=== PATIENT | male | born 1950 | race Caucasian/White ===

== ENCOUNTER 2019-02-12 18:15 | Inpatient (IN) | payer MEDICARE, BC ==
[~2019-02-12] VITALS: Ht 185.4 cm; Wt 98.9 kg
[2019-02-12 18:21] VITALS: BP 212/116
[2019-02-12 18:44] LABS: ABSOLUTE BASOPHILS 0.1 thou/uL (0.0-0.2); ABSOLUTE EOSINOPHILS 0.2 thou/uL (0.0-0.7); ABSOLUTE LYMPHOCYTES 1.5 thou/uL (0.8-5.3); ABSOLUTE MONOCYTES 0.7 thou/uL (0.0-1.2); ABSOLUTE NEUTROPHILS 6.2 thou/uL (1.6-8.1); BASOPHILS 1.2 %; EOSINOPHILS 2.4 %; HEMATOCRIT 42.9 % (42.0-52.0); LYMPHOCYTES 17.6 %; MCH 33.2 pg (26.0-34.0); MCHC 34.9 g/dL (28.0-37.0); MCV 94.9 fL (80.0-100.0); MPV 8.5 fl. (7.2-11.1); NUCLEATED RBCS 0 /100WBC; PLATELET COUNT* 172 thou/uL (150-400); POLYS 70.8 %; RBC 4.52 mil/uL (4.50-6.00); RDW-CV 12.9 % (10.5-14.5); WBC 8.8 thou/uL (4.0-11.0)
[2019-02-12 18:56] LABS: ANION GAP 11 mmol/L (7-16); APTT 25.2 Seconds (25.0-31.3); BUN 16 mg/dL (7-18); CALCIUM 9.1 mg/dL (8.5-10.1); CHLORIDE 102 mmol/L (98-107); CO2 27 mmol/L (21-32); GLUCOSE 108 mg/dL (70-99); POTASSIUM 3.4 mmol/L (3.5-5.1); PROTIME 10.4 Seconds (9.20-11.50); SODIUM 140 mmol/L (136-145)
[2019-02-12 19:05] LABS: ALBUMIN 4.5 g/dL (3.4-5.0); ALKALINE PHOSPHATASE 93 U/L (46-116); SGOT 27 U/L (15-37); SGPT 16 U/L (30-65); TOTAL PROTEIN 7.4 g/dL (6.4-8.2); TROPONIN-I LEVEL <0.06 ng/mL (<0.06)
[2019-02-12] MEDS ORDERED: AMANTADINE100 M1 PO (19:06)
[2019-02-12] MEDS ORDERED: PAXIL10 MG PO (19:06)
[2019-02-12] MEDS ORDERED: SINEMET 10-1001 EAC1 PO (19:07)
[2019-02-12] MEDS ORDERED: SINEMET 25-1001 EAC1 PO ×2 (19:07→19:26)
[2019-02-12] MEDS ORDERED: TRAZODONE HCL50 MG PO (19:08)
[2019-02-12] MEDS ORDERED: MIRAPEX 0.250.25 M1 PO (19:27)
[2019-02-12 19:58] LABS: URINE BILIRUBIN NEGATIVE (Negative); URINE BLOOD NEGATIVE (Negative); URINE CLARITY CLEAR; URINE COLOR YELLOW; URINE GLUCOSE-RANDOM NEGATIVE (Negative); URINE KETONES 2+ (Negative); URINE LEUKOCYTES-REFLEX NEGATIVE (Negative); URINE NITRITE-REFLEX NEGATIVE (Negative); URINE PROTEIN NEGATIVE (Negative); URINE UROBILINOGEN 0.2 E.U./dl (0.2-1.0)
[2019-02-12 20:14] LABS: AMP/METHAMP Negative (Negative); BARBITURATES Negative (Negative); BENZODIAZEPINES Negative (Negative); COCAINE Negative (Negative); METHADONE Negative (Negative); OPIATES Negative (Negative); PCP Negative (Negative); THC Negative (Negative)
[2019-02-12 20:31] VITALS: BP 162/107; BP 186/91
[2019-02-13] VITALS: BP 161/92
--- NOTE | 2019-02-13 07:57 | NUR ---
PATIENT ARRIVED ON FLOOR ABOUT 2039. PATIENT WAS VERY RESTLESS AND IMPULSIVE CLIMBING OUT OF BED FIRST PART OF THE SHIFT. A SITTER WAS PLACED IN THERE PART OF THE NIGHT AND THE DID SIT WITH THE PATIENT FOR A COUPLE HOURS TILL HE CALMED DOWN. IV REMAINS SALINE LOCKED. PATIENT HAD NO COMPLAINTS OF PAIN. BED AND CHAIR ALARMS IN PLACE FOR PATIENT SAFETY. WILL CONTINUE TO MONITOR.
[2019-02-13 08:00] VITALS: BP 152/91
[2019-02-13 12:40] VITALS: BP 146/92
--- NOTE | 2019-02-13 14:14 | NUR ---
Pt is A&O. Resides at home with his . Independent. No DME. No hx of HH or SNF. Goal is home at dc, Pt unsure if he will need anything at dc. Following.
[2019-02-13 16:00] VITALS: BP 151/90
[2019-02-13 20:00] VITALS: BP 148/88
--- NOTE | 2019-02-13 20:13 | NUR ---
I ASSUMED CARE OF THE PATIENT AT 0700. HE IS ALERT AND ORIENTED X4 AND HAS A SITTER. BED IS IN THE LOW LOCKED POSITION AND CALL LIGHT IS IN REACH. HOURLY ROUNDING IS COMPLETED AND PATIENT NEEDS ARE MET. PAIN IS DENIED. PATIENT HAD A SITTER AND COMPANY MOST OF THE DAY. BLOOD PRESSURE SEEMS TO BE IMPROVING. WILL CONTINUE TO MONITOR. IS WILLING TO BRING IN HOME MEDS IF WE STRUGGLE TO ACCESS THEM.
[2019-02-13 23:47] VITALS: BP 150/91
[2019-02-14 04:00] VITALS: BP 160/97
--- NOTE | 2019-02-14 05:02 | NUR ---
PATIENT ALERT/ORIENTED X4 AND IMPULSIVE. PT DOES NOT REMEMBER TO CALL FOR ASSISTANCE TO BATHROOM BUT HAS A VERY STEADY GAIT TO BATHROOM. PT WITH SALINE LOCK AND IS ON ROOM AIR. PT IS SR ON JUNIOR BUSINESS ANALYST. PT DENIES NEEDS AT THIS TIME. FREQUENTLY USED ITEMS AND CALL LIGHT WITHIN REACH. SIDERAILS UPX3 AND BED ALARM ON. FREQUENT OBSERVATIONS MADE. PT HAD 1:1 SITTER FOR APPROX 30 MIN AFTER FRIEND LEFT AND BEFORE HS MEDICATIONS WERE GIVEN. WILL CONTINUE TO MONITOR.
[2019-02-14 06:03] LABS: HEMATOCRIT 45.7 % (42.0-52.0); HEMOGLOBIN 15.3 gm/dL (14.0-18.0); MCH 32.7 pg (26.0-34.0); MCHC 33.5 g/dL (28.0-37.0); MCV 97.4 fL (80.0-100.0); MPV 7.5 fl. (7.2-11.1); RBC 4.69 mil/uL (4.50-6.00); RDW-CV 13.1 % (10.5-14.5); WBC 6.8 thou/uL (4.0-11.0)
[2019-02-14 06:06] LABS: CALCIUM 9.1 mg/dL (8.5-10.1); CREATININE 1.2 mg/dL (0.6-1.3); MAGNESIUM 2.2 mg/dL (1.8-2.4)
[2019-02-14 08:00] VITALS: BP 138/95
[2019-02-14] MEDS ORDERED: LISINOPRIL20 MG PO (08:35)
--- NOTE | 2019-02-14 09:31 | EKG ---
[place] [address] ELECTROCARDIOGRAM REPORT Name: LILLY BONE Room: [address] ADM IN M.R.#: [id number] Admission: 02/12/19 Attend Phys: Roberto Colby MD Discharge: Date of : 48 Report #: [id number] THIS REPORT FOR: //name// [facility] ED Test Date: 2019-02-12 Test Time: 19:03:06 Pat Name: LILLY BONE Department: Room: [facility] Gender: M Pricer: ELENA : 1950 Requested By: Danielle Hernández Order Number: [id number] MD: Wei Aparicio Measurements Intervals [place] Rate: 77 P: 47 DC: 135 QRS: -5 QRSD: 118 T: -12 QT: 431 QTc: 488 Interpretive Statements Sinus rhythm Nonspecific intraventricular conduction delay Lateral infarct, age indeterminate No previous ECG available for comparison Electronically Signed On 02-14-2019 9:31:31 CDT by Wei Aparicio [email or web address] <ELECTRONICALLY SIGNED> By: Wei Aparicio MD, [facility] 02/14/19 0931 02 02 Wei Aparicio MD, [facility] /EPI
[2019-02-14 11:12] VITALS: BP 138/95
== END 2019-02-14 11:45 | disposition home or self-care (01) | DRG 305 ==
LOC: M.ERS 18:15 → M.TBA-ER 19:32 → M.2W 19:32
PROVIDERS: Family Medicine; Internal Medicine; Nurse Practitioner Family; ADMIT Internal Medicine
DX: I16.1 Hypertensive emergency (principal); G93.40 Encephalopathy, unspecified; G25.81 Restless legs syndrome; F32.9 Major depressive disorder, single episode, unspecified; E87.6 Hypokalemia; I10 Essential (primary) hypertension; G20 Parkinson's disease; Z79.899 Other long term (current) drug therapy; T46.5X5A Adverse effect of other antihypertensive drugs, initial encounter; Y92.89 Other specified places as the place of occurrence of the external cause

== ENCOUNTER 2019-02-21 18:43 | Inpatient (IN) | payer MEDICARE, BC ==
[~2019-02-21] VITALS: Ht 185.4 cm; Wt 104.8 kg
[~2019-02-21 18:43] MED LIST: AMANTADINE100 M1 PO; LISINOPRIL20 MG PO; MIRAPEX1 MG PO; PAROXETINE HCL20 MG PO; SINEMET 10-1001 EAC1 PO; SINEMET 25-1001 EAC1 PO; TRAZODONE HCL50 MG PO
[2019-02-21 19:15] VITALS: BP 153/95
[2019-02-21 19:16] LABS: ABSOLUTE BASOPHILS 0.1 thou/uL (0.0-0.2); ABSOLUTE EOSINOPHILS 0.2 thou/uL (0.0-0.7); ABSOLUTE LYMPHOCYTES 1.6 thou/uL (0.8-5.3); ABSOLUTE MONOCYTES 0.7 thou/uL (0.0-1.2); ABSOLUTE NEUTROPHILS 4.4 thou/uL (1.6-8.1); BASOPHILS 2.1 %; EOSINOPHILS 3.3 %; HEMATOCRIT 41.6 % (42.0-52.0); HEMOGLOBIN 14.2 gm/dL (14.0-18.0); LYMPHOCYTES 22.4 %; MCH 33.5 pg (26.0-34.0); MCHC 34.2 g/dL (28.0-37.0); MCV 97.8 fL (80.0-100.0); MONOCYTES 9.5 %; NUCLEATED RBCS 0 /100WBC; PLATELET COUNT* 205 thou/uL (150-400); POLYS 62.7 %; RBC 4.25 mil/uL (4.50-6.00); RDW-CV 13.2 % (10.5-14.5); WBC 7.1 thou/uL (4.0-11.0)
--- NOTE | 2019-02-21 19:22 | NUR ---
SEE CODE STROKE FLOW SHEET
[2019-02-21 19:28] LABS: ANION GAP 7 mmol/L (7-16); BUN 19 mg/dL (7-18); CALCIUM 8.8 mg/dL (8.5-10.1); CHLORIDE 103 mmol/L (98-107); CO2 29 mmol/L (21-32); CREATININE 1.3 mg/dL (0.6-1.3); GLUCOSE 98 mg/dL (70-99); POTASSIUM 3.3 mmol/L (3.5-5.1); SODIUM 139 mmol/L (136-145)
[2019-02-21] MEDS ORDERED: FLORINEF ACETA0.1 MG PO (19:33)
[2019-02-21 19:38] LABS: APTT 24.7 Seconds (25.0-31.3); INR 1.1; PROTIME 10.8 Seconds (9.20-11.50)
[2019-02-21 19:39] LABS: ALBUMIN 3.9 g/dL (3.4-5.0); ALKALINE PHOSPHATASE 81 U/L (46-116); SGOT 21 U/L (15-37); SGPT 22 U/L (30-65); TOTAL BILIRUBIN 0.8 mg/dL (<0.1-1.0); TOTAL PROTEIN 6.7 g/dL (6.4-8.2); TROPONIN-I LEVEL <0.06 ng/mL (<0.06)
--- NOTE | 2019-02-21 20:35 | NUR ---
[facility] HAS RX FOR LISINOPRIL 20MG PO (RX NOT FILLED PER SPOUSE)
--- NOTE | 2019-02-21 20:45 | NUR ---
NEUROLOGIST HERE TO SEE PATIENT
[2019-02-21 21:15] LABS: URINE BILIRUBIN NEGATIVE (Negative); URINE BLOOD NEGATIVE (Negative); URINE CLARITY CLEAR; URINE COLOR YELLOW; URINE GLUCOSE-RANDOM NEGATIVE (Negative); URINE KETONES NEGATIVE (Negative); URINE LEUKOCYTES NEGATIVE (Negative); URINE NITRITE NEGATIVE (Negative); URINE PROTEIN NEGATIVE (Negative); URINE SPECIFIC GRAVITY <= 1.005 (1.005-1.030)
[2019-02-21 22:50] VITALS: BP 155/90
[2019-02-21 23:06] VITALS: BP 178/99
[2019-02-22] VITALS (21 sets, daily range): BP systolic 103–227; BP diastolic 56–203
--- NOTE | 2019-02-22 01:04 | NUR ---
SPOKE WITH , ROBERTO AND VERIFIED WITH PATIENT'S PHARMACY THAT PATIENT IS ON MIDODRINE AND FLUDROCORTISONE. REPORTS PATIENT WAS DISCHARGED WITH LISINOPRIL PRESCRIPTION ON HIS LAST VISIT, BUT THEY HAVEN'T HAD THE CHANCE TO FILL IT YET. DR. MENDOZA NOTIFIED, ADDITIONAL ORDERS RECEIVED. NIH REMAINS 0.
--- NOTE | 2019-02-22 06:42 | NUR ---
NIH 0 THROUGH THE NIGHT. POTASSIUM REPLACED PER PROTOCOL. SPOKE WITH DR. GARCIA THIS AM FOR ADDITIONAL ORDERS. CABLE SPLICING TECHNICIAN RN TO COME ASSESS NEEDS PER PROVIDER. SBP MAINTAINED BELOW 170 WITH ONE DOSE OF LISINOPRIL. PATIENT WANTING TO SIT IN CHAIR, UNCOMFORATBLE, BUT OTHERWISE DOES NOT HAVE CONCERNS. REFUSES REPOSITIONING WITH WEDGES, ABLE TO POSITION HIMSELF IN BED. CALL LIGHT WITHIN REACH.
[2019-02-22] MEDS ORDERED: XANAX 0.25 MG0.25 MG PO (10:35)
[2019-02-22] MEDS ORDERED: CARBIDOPA-LEVO1 EAC7 PO (10:36)
[2019-02-22] MEDS ORDERED: CO Q-10100 MG PO (10:37)
[2019-02-22] MEDS ORDERED: PRINIVIL20 MG PO (10:38)
[2019-02-22] MEDS ORDERED: MIDODRINE HCL 55 M1 PO (10:38)
[2019-02-22] MEDS ORDERED: VITAMIN D1000 UNI1 PO (10:39)
[2019-02-22] MEDS ORDERED: B COMPLEX1 EACH PO (10:40)
[2019-02-22] MEDS ORDERED: TESTOSTERONE TOP (10:43)
--- NOTE | 2019-02-22 11:04 | EKG ---
[place] [address] ELECTROCARDIOGRAM REPORT Name: LILLY BONE Room: [address] ADM IN .R.#: [id number] Admission: 02/21/19 Attend Phys: Dharmesh Fish Discharge: Date of : 48 Report #: [id number] THIS REPORT FOR: //name// [facility] ED Test Date: 2019-02-21 Test Time: 19:14:11 Pat Name: LILLY BONE Department: Room: [facility] Gender: M System Operation Superintendent: [place] : 1950 Requested By: Milton Muñoz Order Number: [id number] MD: Jorge Luis Britt Measurements Intervals [place] Rate: 69 P: 49 [place]: 131 QRS: -5 QRSD: 113 T: 8 QT: 407 QTc: 436 Interpretive Statements Sinus rhythm Borderline intraventricular conduction delay Compared to ECG 02/12/2019 19:03:06 no change Electronically Signed On 02-22-2019 11:04:37 CDT by Jorge Luis Britt [email or web address] <ELECTRONICALLY SIGNED> By: Jorge Luis Britt MD, [facility] 02/22/19 110 13 13 Jorge Luis Britt MD, FAC /EPI
--- NOTE | 2019-02-22 11:16 | NUR ---
Bottle Selector: Patient is post tPA. Met with patient and . Discussed hospital plan and what to expect. Patient and engaged, asking questions. Will continue to follow. Lipid profile pending. NC-CT head this evening.
--- NOTE | 2019-02-22 11:33 | NUR ---
CM spoke with in [facility]. Per , Pt is A&O. states that Pt has been declining over the past few weeks. states that they recently sold their home d/t Pt's Parkinson's dx, they downsized and are building, they were told that their homes would be ready prior to the sell of their home, but they weren't complete. Pt and have since been staying in a local hotel. states that the Pt has become more anxious and forgetful since living in the hotel. states that she has been in contact with [facility], in anticipation that Pt may need caregivers in the home. No DME. No hx of HH or SNF. Pt goes to yoga 2x/week, sees a regional sales trainer 2x/week and gets a massage 1/week. Goal is home at dc. Following for dc needs.
[2019-02-22 14:21] LABS: CHOLESTEROL 174 mg/dL (<200); HDL CHOLESTEROL 42 mg/dL (>40); LDL CHOLESTEROL 117 mg/dL (<100); SERUM ASSESSMENT Clear; TC:HDL 4.1 Ratio (Not establshd); TRIGLYCERIDE 78 mg/dL (<150); VLDL 16 mg/dL (<40)
--- NOTE | 2019-02-22 14:23 | 2DMMODE ---
[place] [address] 2 D/M-MODE ECHOCARDIOGRAM Name: INESKELLIELILLY W Room: [address] ADM IN [facility]#: [id number] Admission: 02/21/19 Attend Phys: Artemio Ceravntes Discharge: Date of : 48 Date of Service: 02/22/19 1423 Report #: [id number] THIS REPORT FOR: //name// APPROVED REPORT Study performed: 02/22/2019 09:36:00 EXAM: Comprehensive 2D, Doppler, and color-flow Echocardiogram Patient Location: In-Patient Room #: 001 Status: routine BSA: 2.21 HR: 73 bpm BP: 193/117 mmHg Rhythm: NSR Other Information Study Quality: Good Indications CVA/TIA Hypertension/HDD Echo Enhancing Agent Indication: Rule out Shunt Agent(s) / Amount(s) Used: Agitated Saline 10 cc 2D Dimensions IVSd: 13.09 (7-11mm) LVDd: 45.24 mm Sinus of Valsalva: 36.70 mm PWd: 12.92 (7-11mm) Ascending Ao: 35.40 (22-36mm) LVDs: 32.17 (25-40mm) Volumes Left Atrial Volume (Systole) LA ESV Index: 31.20 mL/m2 Aortic Valve AoV Peak Eliot.: 1.49 m/s AO Peak Gr.: 8.82 mmHg LVOT Max P.87 mmHg AO Mean Gr.: 5.07 mmHg LVOT Mean P.69 mmHg LVOT Max V: 1.40 m/s AO V2 VTI: 30.48 cm LVOT Mean V: 0.88 m/s MATHEUS (VTI): 10.90 cm2 LVOT V1 VTI: 31.38 [place] [address] 2 D/M-MODE ECHOCARDIOGRAM Name: LILLY BONE Room: [address]#: [id number] Admission: 02/21/19 Attend Phys: Artemio Cervantes Discharge: Date of : 48 Date of Service: 02/22/19 1423 Report #: [id number] Mitral Valve E/A Ratio: 0.75 MV Decel. Time: 213.75 ms MV E Max Eliot.: 0.64 m/s MV PHT: 61.99 ms MVA (PHT): 3.55 cm2 TDI E/Lateral E': 6.40 E/Medial E': 5.82 Medial E' Eliot.: 0.11 m/s Lateral E' Eliot.: 0.10 m/s Pulmonary Valve PV Peak Eliot.: 0.90 m/s PV Peak Gr.: 3.25 mmHg Left Ventricle The left ventricle is normal size. There is normal LV segmental wall motion. Mild concentric left ventricular hypertrophy. Left ventricular systolic function is normal. The left ventricular ejection fraction is within the normal range. LVEF is 60-65%. Grade I - abnormal relaxation pattern. Right Ventricle The right ventricle is normal size. The right ventricular systolic function is normal. Atria Left atrium is mildly dilated. Interatrial septum is intact without evidence of ASD or PFO. The right atrium size is normal. Aortic Valve The aortic valve is normal in structure. Mild aortic regurgitation. There is no aortic valvular stenosis. Mitral Valve The mitral valve is normal in structure. Mild mitral regurgitation. No evidence of mitral valve stenosis. Tricuspid Valve The tricuspid valve is normal in structure. Unable to assess PA pressure. Trace tricuspid regurgitation. Pulmonic Valve Pulmonic valve is not well visualized. There is no [place]mon[place] [address] 2 D/M-MODE ECHOCARDIOGRAM Name: LILLY BONE Room: [address]#: [id number] Admission: 02/21/19 Attend Phys: Artemio Cervantes Discharge: Date of : 48 Date of Service: 02/22/19 1423 Report #: [id number] Great Vessels The aortic root is normal in size. IVC is normal in size and collapses >50% with inspiration. Pericardium There is no pericardial effusion. <Conclusion> Mild concentric left ventricular hypertrophy. LVEF is 60-65%. Left atrium is mildly dilated. Mild aortic regurgitation. Mild mitral regurgitation. Interatrial septum is intact without evidence of ASD or PFO. <ELECTRONICALLY SIGNED> By: Jorge Luis Britt MD, [facility] 02/22/19 1423 1423 1423 Jorge Luis Britt MD, FACC /INF
[2019-02-22 21:27] LABS: ABSOLUTE BASOPHILS 0.1 thou/uL (0.0-0.2); ABSOLUTE EOSINOPHILS 0.2 thou/uL (0.0-0.7); ABSOLUTE MONOCYTES 0.5 thou/uL (0.0-1.2); ABSOLUTE NEUTROPHILS 4.5 thou/uL (1.6-8.1); BASOPHILS 1.1 %; EOSINOPHILS 3.2 %; HEMATOCRIT 40.5 % (42.0-52.0); HEMOGLOBIN 13.8 gm/dL (14.0-18.0); LYMPHOCYTES 15.7 %; MCH 33.7 pg (26.0-34.0); MCHC 34.1 g/dL (28.0-37.0); MCV 98.8 fL (80.0-100.0); MONOCYTES 7.6 %; MPV 7.5 fl. (7.2-11.1); NUCLEATED RBCS 0 /100WBC; PLATELET COUNT* 192 thou/uL (150-400); POLYS 72.4 %; RDW-CV 13.3 % (10.5-14.5); WBC 6.1 thou/uL (4.0-11.0)
[2019-02-23] VITALS (25 sets, daily range): BP systolic 78–177; BP diastolic 47–101
[2019-02-23 03:58] LABS: ALBUMIN 4.1 g/dL (3.4-5.0); CALCIUM 9.4 mg/dL (8.5-10.1); CHOLESTEROL 191 mg/dL (<200); CREATININE 1.2 mg/dL (0.6-1.3); HDL CHOLESTEROL 46 mg/dL (>40); LDL CHOLESTEROL 127 mg/dL (<100); POTASSIUM 3.7 mmol/L (3.5-5.1); TC:HDL 4.2 Ratio (Not establshd); TOTAL BILIRUBIN 1.4 mg/dL (<0.1-1.0); TOTAL PROTEIN 6.9 g/dL (6.4-8.2); TRIGLYCERIDE 92 mg/dL (<150); VLDL 18 mg/dL (<40)
[2019-02-23 03:59] LABS: SERUM ASSESSMENT CLEAR
--- NOTE | 2019-02-23 04:15 | NUR ---
patient sleeping soundly on recliner with stable vitals. woke up around 0300 very disoriented, restless and asking to walk around. unable to orient patient or have him to get in bed. security was called after about 30 mins of negotiation, at which time he get in bed. patient more oriented at this time, able to tell me his date of and year. more calm and approptiate. same episode when patient was woken up to be taken to CT last night, took abour 20-30 mins for him to go back to being calm and oriented. patient called staff back to room and apologized "for not listening". reports he has never been a deep sleeper before, reports his "head and vision is getting clearer by the minute".
--- NOTE | 2019-02-23 10:45 | CON ---
[facility] [address] [place] [address] CONSULTATION Name: INESSTEVENSTEFANIALILLY Donn Room: [address] IN M.R.#: [id number] Admission: 02/21/19 Attend Phys: Dharmesh Fish Discharge: Date of : 48 Report #: [id number] THIS REPORT FOR: //name// CC: Teresa Cervantes DATE OF SERVICE: 02/22/2019 DATE OF SERVICE: 02/22/2019 and 02/21/2019. HISTORY OF PRESENT ILLNESS: This is a 69-year-old male patient who was seen by me yesterday and today. I could not dictate a consult yesterday because of being too busy. This is a combined note for both the days. Yesterday, I was called from Emergency Room physician because the patient had presented with the symptoms suggestive of stroke. He complained that he had speech difficulty. It was mainly expressing. He was not able to stand. He was markedly ataxic. He has some nonspecific visual disturbances. He was evaluated for the possibility of stroke and after the workup and after discussing indication, potential complication, and alternative with the patient, the Emergency Room physician started him on TPA. He tolerated TPA well and in fact his symptoms resolved. Yesterday when I saw him, he was having very little symptoms; this morning, he is not having any residual symptoms. REVIEW OF SYSTEMS: Positive for Parkinson disease. He goes to Dr. Coburn at [facility] for the management of that. The patient was treated with hypertensive emergency. Recently, he is taking medications like Florinef. I do not know whether he had any postural hypotension or not. A 14-point review of system was carried out and it was positive for above. He does appear to have pretty severe Parkinson disease. He has a restless leg syndrome and he has postural hypotension. MEDICATIONS: He is also on multiple other medications like trazodone. He says he takes it for sleep, but he is also on antidepressant like paroxetine. PAST MEDICAL HISTORY: Positive for Parkinson disease and hypertensive emergency. FAMILY HISTORY: Unremarkable. SOCIAL HISTORY: He is and his was there and she provided most of the history. PHYSICAL EXAMINATION: NEUROLOGICAL: Indicate this patient is alert, responsive, able to follow simple commands. Cranial nerve examination, when I saw [place] [address] CONSULTATION Name: LILLY BONE Room: [address] IN [facility]#: [id number] Admission: 02/21/19 Attend Phys: Dharmesh Fish Discharge: Date of : 48 Report #: [id number] this morning it looks unremarkable. He moves all 4 extremities. Apparently, did not have much focal deficit except aphasia and mainly ataxia. There is no meningeal sign. There is no carotid bruit. CARDIAC EXAMINATION: Appear unremarkable. LUNGS: No respiratory difficulty was noticed. GENERAL: He is a well-built individual who does not have any dysmorphic features of eyes, ears and face. VITAL SIGNS: His blood pressure is 193/117 today, it was high yesterday, but it has come down. His CT angio was reviewed and discussed with him yesterday and today. IMPRESSION: The patient presented with symptoms suggestive of ischemic event, but he is better. He has no complication from TPA. RECOMMENDATION: I discussed the situation with the family. We will go ahead and do an MRI in this patient. He has so many problems and it becomes very difficult, which symptoms are causing. We need to control his blood pressure to near normal because his vasculature is open. Thank you very much for this referral. <ELECTRONICALLY SIGNED> By: Raghu Hammond MD 02/23/19 1045 1205 1529Raghu Hammond MD /nt
--- NOTE | 2019-02-23 11:10 | NUR ---
ICU rounds: CVA images negative, symptoms likely do to parkinson's dx. Continue to monitor BP. ? onset of dementia. PT recommending that Pt dc to home with .
--- NOTE | 2019-02-23 18:16 | NUR ---
PT ALERT AND ORIENTED X3, WANTS TO GET OUT OF THE ICU AND TRIES GETTING OUT OF THE BED OR CHAIR SEVERAL TIMES, EDUCATION PROVIDED. CAN'T SIT STILL, WALKED HIM AROUND THE ICU SEVERAL TIMES, STAND BY ASSIST. BP WITHIN NORMAL LIMITS. TOLERATING HIS DIET. GOOD OUTPUT.
[2019-02-24] VITALS (8 sets, daily range): BP systolic 79–131; BP diastolic 40–82
[2019-02-24 02:10] LABS: GLYCOHEMOGLOBIN (HGB A1C) 5.6 % (4.8-5.6)
--- NOTE | 2019-02-24 04:02 | NUR ---
PATIENT SLEEPING SOUNDLY AT THIS TIME, WILL TAKE A SET OF VITALS WHEN HE WAKES UP. NSR ON THE MONITOR.
--- NOTE | 2019-02-24 06:46 | NUR ---
PATIENT SLEEPING THROUGH MOST OF THE NIGHT. BP FLUCTUATES, ON THE LOWER END FOLLOWING GETTING OUT OF BED/WALK. OTHERWISE UNEVENTFUL NIGHT. ABLE TO WALK AROUND THE [place] A COUPLE OF TIMES WITH STAND BY ASSIST. 700 CC UOP. ABLE TO CALL NURSE BEFORE GETTING OUT OF BED.
--- NOTE | 2019-02-24 12:00 | NUR ---
ORDER NOTED FOR DC. MET WITH PT AND . THEY HAD NO SPECIFIC QUESTIONS FOR CM, PLAN TO RETURN HOME TO [place]OT[place] UNTIL THEIR HOME IS COMPLETE. PT TO RETURN TO HIS REGULAR SCHEDULE, NOT HOMEBOUND AND DECLINE HH. NURSE TO REVIEW REMAINDER OF DC INSTRUCTIONS
--- NOTE | 2019-02-24 14:35 | NUR ---
PT A&O X4. VSS. NEURO OKAY WITH DISCHARGE. DISCHARGE EDUCATION PROVIDED. PT LEFT THE UNIT AT 1400 WITH HIS .
== END 2019-02-24 13:45 | disposition home or self-care (01) | DRG 305 ==
LOC: M.ERS 18:43 → M.TBA-ER 20:10 → M.ICU 20:10
PROVIDERS: Family Medicine; Internal Medicine; ADMIT Internal Medicine
DX: I16.1 Hypertensive emergency (principal); I67.4 Hypertensive encephalopathy; I43 Cardiomyopathy in diseases classified elsewhere; I95.1 Orthostatic hypotension; G20 Parkinson's disease; I11.9 Hypertensive heart disease without heart failure; G25.81 Restless legs syndrome; F32.9 Major depressive disorder, single episode, unspecified; E87.6 Hypokalemia; E78.5 Hyperlipidemia, unspecified; G90.9 Disorder of the autonomic nervous system, unspecified; I69.920 Aphasia following unspecified cerebrovascular disease; Z91.14 Patient's other noncompliance with medication regimen; Z79.899 Other long term (current) drug therapy